=== PATIENT | female | born 2000 | race Caucasian/White ===

== ENCOUNTER 2022-04-21 05:19 | Emergency (ER) | payer MEDICAID ==
[~2022-04-21] VITALS: Ht 167.6 cm; Wt 78.6 kg
[2022-04-21] MEDS ORDERED: MORPHINE SULFATE 10 MG/ML CPJ IM ONE (05:45)
[2022-04-21] MEDS ORDERED: HALOPERIDOL LACTATE 5MG/ML VIAL IM ONE (05:45)
[2022-04-21] MEDS ORDERED: LORAZEPAM 2MG/ML CPJ IM ONE (06:30)
[2022-04-21 06:32] VITALS: BP 136/78
[2022-04-21] MEDS ORDERED: BO1 TP (08:56)
[2022-04-21] MEDS ORDERED: TETANUS, DIPHTHERIA, PERTUSSIS VAC/PF 0.5ML (>10YR OLD) IM ONE (09:00)
== END 2022-04-21 09:47 | disposition home or self-care (01) ==
LOC: ER 05:19
DX: S50.312A Abrasion of left elbow, initial encounter (principal); S50.311A Abrasion of right elbow, initial encounter; X58.XXXA Exposure to other specified factors, initial encounter; Y93.89 Activity, other specified; Y92.89 Other specified places as the place of occurrence of the external cause; Y99.8 Other external cause status
CPT/HCPCS: 73552; 73560; 90471; 90715; 96372; 99284; J1630; J2060; J2270